=== PATIENT | female | born 2000 | race Hispanic/Latino ===

== ENCOUNTER 2024-04-02 10:20 | Inpatient (IN) | payer OTHER ==
[2024-04-02 12:11] LABS: #Basophils 0.07 10x3/uL (0.0-0.2); #Eosinophils 0.07 10x3/uL (0.0-0.5); #Monocytes 0.85 10x3/uL (0.0-1.1); #Neutrophils 9.26 10x3/uL (1.5-8.4); %Basophils 0.6 % (0.0-2.0); %Eosinophils 0.6 % (0.0-6.0); %Lymphocytes 10.4 % (18.0-47.0); %Monocytes 7.4 % (0.0-10.0); %Neutrophils 80.7 % (40.0-75.0); Mean Corpuscular HGB CONC 31.4 g/dL (32.0-36.0); Mean Corpuscular Hemoglobin 21.9 pg (27.0-33.0); Mean Corpuscular Volume 69.7 fL (81.6-98.3); Mean Platelet Volume 10.5 fL (7.4-10.4); Platelet Count 305 10x3/uL (150-450); RBC Distribution Width 17.4 % (11.5-14.5); Red Blood Cell (RBC) Count 5.02 10x6/uL (3.90-5.03); White Blood Cell (WBC) Count 11.5 10x3/uL (3.5-10.5)
[2024-04-02 12:21] LABS: BHCG - Serum Negative (NEGATIVE); Pregs Control Background? CLEAR/WHITE (CLR/WHITE); Pregs Control Bar Appear? YES (CONTROL BAR)
[2024-04-02 12:27] LABS: Phosphorus 3.1 mg/dL (2.3-4.7)
[2024-04-02 12:29] LABS: ALT (SGPT) 18 U/L (8-55); AST (SGOT) 16 U/L (5-34); Albumin 3.9 g/dL (3.5-5.0); Alkaline Phosphatase 161 U/L (40-110); Anion Gap 21 mmol/L (10-20); BUN (Urea Nitrogen) 4 mg/dL (7.0-18.7); Bilirubin, Total 0.8 mg/dL (0.2-1.2); Calc. Creatinine Clearance 0 mL/min (70-130); Calcium 8.7 mg/dL (7.8-10.44); Carbon Dioxide 16 mmol/L (22-29); Chloride 103 mmol/L (98-107); Estimated GFR 86; Globulin 3.4 g/dL (2.4-3.5); Magnesium 1.7 mg/dL (1.6-2.6); Potassium 3.4 mmol/L (3.5-5.1); Protein, Total 7.3 g/dL (6.0-8.3); Sodium 137 mmol/L (136-145)
[2024-04-02 12:30] LABS: Troponin I Less than 0.010 ng/mL (< 0.028)
[2024-04-02 12:31] LABS: Actual Bicarbonate (HCO3v) 18.7 mEq/L (22-28); Analyzer IN Cardio CS ER; Base Excess -7.3 mEq/L (-2 - +2); Calcium, Ionized (venous) 1.14 mmol/L (1.16-1.32); Chloride (VBG) 102 mmol/L (98-106); Critical Notified Whom: DURRI; Hematocrit-VBG 36 % (36.0-47.0); Hemoglobin (Hb) 12.2 g/dL (11.7-15.5); Potassium (VBG) 3.38 mmol/L (3.70-5.30); Puncture Site Other Site; RapidComm Collect By LAB; Sodium 137 mmol/L (133-146); pH (venous) 7.292 (7.32-7.43)
[2024-04-02 12:32] LABS: Critical Call Chemistry AT ERS.BW2 READ BACK RESULT @ 1232; Glucose 635 mg/dL (70-105)
[2024-04-02] MEDS ORDERED: Potassium Chloride 20 MEQ TAB ONE ×2 (12:38→15:58)
[2024-04-02] MEDS ORDERED: Insulin Regular, Human 100 UNIT/ML 10 ML VIAL ONE (12:39)
[2024-04-02] MEDS ORDERED: NS 0.9% w/ 20 MEQ KCL 1,000 ML ONE ×3 (12:39→18:12)
[2024-04-02] MEDS ORDERED: INSULIN REGULAR IN 0.9 % NACL 100 ML ONE (12:40)
[2024-04-02 13:11] LABS: Anisocytosis SLIGHT = 6-15 cells (100X) (0-5/hpf); Hypochromia SLIGHT = 6-15 cells (100X) (0-5/hpf); Microcytosis SLIGHT = 6-15 cells (100X) (0-5/hpf)
[2024-04-02 13:12] LABS: Platelet Adequacy Comment Appears Adequate; Tear Drops SLIGHT = 2-5 cells (100X) (0-1/hpf)
[2024-04-02 13:21] LABS: Bilirubin Neg (Negative); Blood, Urine 25 (Negative); Clarity Clear (Clear); Glucose, Urine (Dipstick) >=1000 mg/dL (Negative); Ketone, Urine 150 mg/dL (Negative); Leukocyte 100 (Negative); Nitrite Negative (Negative); Protein, Urine (Dipstick) 30 mg/dl (Neg-Trace); Urobilinogen Normal mg/dL (Less than 2)
[2024-04-02 13:33] LABS: Bacteria/HPF 2+ HPF (None Seen); CAUTI Indications for Culture Dysuria,urgency,freq; RBC/HPF 0-3 HPF (0-3); Squamous Epithelial 0-3 HPF (0-3); Urine Culture Reflex No No
[2024-04-02] MEDS ORDERED: Ondansetron PF 4 MG/2 ML Vial IVP PRN (13:46)
[2024-04-02] MEDS ORDERED: Dextrose 50% Abboject 50 ML SYRINGE SLOW IVP PRN ×2 (13:48→21:27)
[2024-04-02] MEDS ORDERED: D5 1/2 NS w/20 mEq KCL 1,000 ML IV PRN (13:48)
[2024-04-02] MEDS ORDERED: Dextrose 5 %-0.45 % NaCl 1,000 ML IV PRN (13:48)
[2024-04-02] MEDS ORDERED: Sodium Chloride 0.9% 1,000 ML IV PRN ×4 (13:48)
[2024-04-02] MEDS ORDERED: NS 0.9% w/ 20 MEQ KCL 1,000 ML IV PRN ×2 (13:48)
[2024-04-02] MEDS ORDERED: Electrolyte Replacement Protocol 1 EACH IVPB PRN (13:48)
[2024-04-02] MEDS ORDERED: INSULIN REGULAR IN 0.9 % NACL 100 ML IVPB SCH (14:00)
[2024-04-02 14:38] LABS: Anion Gap 15 mmol/L (10-20); BUN (Urea Nitrogen) Less than 4 mg/dL (7.0-18.7); Calc. Creatinine Clearance 0 mL/min (70-130); Calcium 8.7 mg/dL (7.8-10.44); Carbon Dioxide 17 mmol/L (22-29); Chloride 110 mmol/L (98-107); Estimated GFR 120; Glucose 272 mg/dL (70-105); Sodium 139 mmol/L (136-145)
[2024-04-02] MEDS ORDERED: Magnesium 2 GM/50 ML BAG (IN WATER) ONE (15:34)
[2024-04-02] MEDS ORDERED: Dextrose 50% Abboject 50 ML SYRINGE ONE (16:44)
[2024-04-02] MEDS ORDERED: D5 1/2 NS w/20 mEq KCL 1,000 ML ONE (16:44)
[2024-04-02] MEDS ORDERED: Ketorolac Tromethamine 30 MG (1 mL) VIAL ONE (18:02)
[2024-04-02 18:41] LABS: Anion Gap 13 mmol/L (10-20); BUN (Urea Nitrogen) Less than 4 mg/dL (7.0-18.7); Calc. Creatinine Clearance 0 mL/min (70-130); Calcium 8.5 mg/dL (7.8-10.44); Carbon Dioxide 19 mmol/L (22-29); Chloride 109 mmol/L (98-107); Estimated GFR 129; Glucose 256 mg/dL (70-105); Potassium 3.4 mmol/L (3.5-5.1); Sodium 138 mmol/L (136-145)
[2024-04-02 20:14] VITALS: BMI 34.3
[2024-04-02] MEDS: Lantus 1000 UNITS/10 ML VIAL SC SCH (20:38)
[2024-04-02] MEDS ORDERED: Nystatin/Triamcinolone Ointment 15 GM TUBE TOP SCH (21:00)
[2024-04-02] MEDS: Lactated Ringer's 1,000 ML IV SCH (21:00)
[2024-04-02 21:24] LABS: Anion Gap 14 mmol/L (10-20); BUN (Urea Nitrogen) Less than 4 mg/dL (7.0-18.7); Calc. Creatinine Clearance 185 mL/min (70-130); Calcium 8.7 mg/dL (7.8-10.44); Carbon Dioxide 19 mmol/L (22-29); Chloride 108 mmol/L (98-107); Estimated GFR 127; Glucose 237 mg/dL (70-105); Potassium 3.3 mmol/L (3.5-5.1); Sodium 138 mmol/L (136-145)
[2024-04-02] MEDS ORDERED: Dextrose 5% in Water 1,000 ML IV PRN (21:27)
[2024-04-02] MEDS ORDERED: Glucagon 1 MG/ML KIT IM PRN (21:27)
[2024-04-02] MEDS: Nystatin/Triamcinolone Cream 15 GM TUBE TOP SCH (21:49)
[2024-04-02] MEDS: Potassium Chloride 20 MEQ TAB PO SCH (21:50)
[2024-04-02] MEDS: Famotidine 20 MG TAB PO SCH (21:50)
[2024-04-02] MEDS: Insulin Lispro 100 UNIT/ML 10 ML VIAL SC PRN (21:51)
[2024-04-02] MEDS: Fluconazole 100 MG TAB PO SCH (21:57)
[2024-04-02] MEDS: cefTRIAXone\\ROCEPHIN 1 GM in Sodium Chloride 0.9% 100 ML IVPB SCH ×2 (22:08→22:10)
[2024-04-03] MEDS: Insulin Lispro 100 UNIT/ML 10 ML VIAL SC PRN (01:04)
[2024-04-03 04:51] LABS: #Basophils 0.04 10x3/uL (0.0-0.2); #Eosinophils 0.25 10x3/uL (0.0-0.5); #Monocytes 0.98 10x3/uL (0.0-1.1); #Neutrophils 5.19 10x3/uL (1.5-8.4); %Basophils 0.4 % (0.0-2.0); %Eosinophils 2.7 % (0.0-6.0); %Lymphocytes 30.9 % (18.0-47.0); %Monocytes 10.4 % (0.0-10.0); %Neutrophils 55.3 % (40.0-75.0); Hematocrit 31.3 % (34.9-44.5); Hemoglobin 9.8 g/dL (12.0-15.5); Mean Corpuscular HGB CONC 31.3 g/dL (32.0-36.0); Mean Corpuscular Hemoglobin 21.8 pg (27.0-33.0); Mean Corpuscular Volume 69.6 fL (81.6-98.3); Mean Platelet Volume 10.1 fL (7.4-10.4); Platelet Count 265 10x3/uL (150-450); White Blood Cell (WBC) Count 9.4 10x3/uL (3.5-10.5)
[2024-04-03 05:02] LABS: Anion Gap 11 mmol/L (10-20); BUN (Urea Nitrogen) Less than 4 mg/dL (7.0-18.7); Calc. Creatinine Clearance 196 mL/min (70-130); Calcium 8.6 mg/dL (7.8-10.44); Carbon Dioxide 21 mmol/L (22-29); Chloride 109 mmol/L (98-107); Estimated GFR 129; Glucose 230 mg/dL (70-105); Magnesium 1.7 mg/dL (1.6-2.6); Potassium 3.3 mmol/L (3.5-5.1); Sodium 138 mmol/L (136-145)
[2024-04-03] MEDS: Potassium Chloride 20 MEQ TAB PO SCH (05:38)
[2024-04-03] MEDS: Magnesium 2 GM/50 ML(in water) 2 GM in Premix 1 BAG IVPB SCH (05:38)
[2024-04-03] MEDS: Ketorolac Tromethamine 30 MG (1 mL) VIAL IVP PRN (06:04)
[2024-04-03] MEDS: Lactated Ringer's 1,000 ML IV SCH ×2 (06:33→15:16)
[2024-04-03] MEDS ORDERED: Fluconazole 100 MG TAB PO SCH (09:00)
[2024-04-03] MEDS: Lantus 1000 UNITS/10 ML VIAL SC SCH (09:10)
[2024-04-03] MEDS: Enoxaparin 40 MG (0.4 mL) SYRINGE SC SCH (09:16)
[2024-04-03 16:04] LABS: Anion Gap 10 mmol/L (10-20); BUN (Urea Nitrogen) Less than 4 mg/dL (7.0-18.7); Calc. Creatinine Clearance 179 mL/min (70-130); Calcium 8.9 mg/dL (7.8-10.44); Carbon Dioxide 24 mmol/L (22-29); Chloride 105 mmol/L (98-107); Estimated GFR 127; Glucose 284 mg/dL (70-105); Potassium 3.6 mmol/L (3.5-5.1); Sodium 135 mmol/L (136-145)
[2024-04-03] MEDS: Insulin Lispro 100 UNIT/ML 10 ML VIAL SC SCH (17:30)
[2024-04-03] MEDS: HYDROcodone/Acetaminophen 5/325 mg Tablet PO SCH (21:09)
[2024-04-04] MEDS: Acetaminophen 325 MG TAB PO PRN (00:29)
[2024-04-04 04:29] LABS: #Basophils 0.04 10x3/uL (0.0-0.2); #Eosinophils 0.16 10x3/uL (0.0-0.5); #Monocytes 0.88 10x3/uL (0.0-1.1); #Neutrophils 4.32 10x3/uL (1.5-8.4); %Basophils 0.5 % (0.0-2.0); %Eosinophils 2.1 % (0.0-6.0); %Lymphocytes 27.6 % (18.0-47.0); %Monocytes 11.7 % (0.0-10.0); %Neutrophils 57.8 % (40.0-75.0); Hematocrit 32.7 % (34.9-44.5); Hemoglobin 10.2 g/dL (12.0-15.5); Mean Corpuscular HGB CONC 31.2 g/dL (32.0-36.0); Mean Corpuscular Volume 70.5 fL (81.6-98.3); Mean Platelet Volume 10.8 fL (7.4-10.4); Platelet Count 250 10x3/uL (150-450); RBC Distribution Width 17.3 % (11.5-14.5); Red Blood Cell (RBC) Count 4.64 10x6/uL (3.90-5.03); White Blood Cell (WBC) Count 7.5 10x3/uL (3.5-10.5)
[2024-04-04 04:49] LABS: Anion Gap 14 mmol/L (10-20); BUN (Urea Nitrogen) 6 mg/dL (7.0-18.7); Calc. Creatinine Clearance 174 mL/min (70-130); Calcium 8.5 mg/dL (7.8-10.44); Carbon Dioxide 21 mmol/L (22-29); Chloride 105 mmol/L (98-107); Estimated GFR 124; Glucose 334 mg/dL (70-105); Magnesium 1.7 mg/dL (1.6-2.6); Potassium 3.3 mmol/L (3.5-5.1); Sodium 137 mmol/L (136-145)
[2024-04-04] MEDS: Magnesium 2 GM/50 ML(in water) 2 GM in Premix 1 BAG IVPB SCH (10:33)
[2024-04-04] MEDS: Potassium Chloride 20 MEQ TAB PO SCH ×2 (10:34)
[2024-04-04] MEDS: Fluconazole 100 MG TAB PO SCH (10:35)
[2024-04-04 18:30] VITALS: BP 120/75; TEMP 98.1
== END 2024-04-04 14:30 | disposition home or self-care (01) | DRG 638 ==
LOC: EEVIPCON 10:20 → CSHERS 10:20 → CSHERHOLD 15:13 → CSHTELE 19:59
PROVIDERS: ADMIT Internal Medicine; ATTEND Internal Medicine
DX: E11.10 Type 2 diabetes mellitus with ketoacidosis without coma (principal); N39.0 Urinary tract infection, site not specified; B37.31 Acute candidiasis of vulva and vagina; Z79.899 Other long term (current) drug therapy; Z79.4 Long term (current) use of insulin; B95.1 Streptococcus, group B, as the cause of diseases classified elsewhere
CPT/HCPCS: 36415; 36416; 80048; 80053; 81001; 82010; 82805; 83735; 84100; 84484; 84703; 85025; 87077; 87086; 93005; 96361; 96365; 96366; 96368; 96375; 96376; J0696; J1650; J1815; J1885; J3475; J3480; J7042; J7120; J7999